=== PATIENT | female | born 1945 | race Caucasian/White ===

== ENCOUNTER 2023-11-05 10:41 | Emergency (ER) | payer MEDICARE, SELFPAY ==
[2023-11-05 10:43] VITALS: BP 157/85; PULSE 69; RESP 18; TEMP 36.7; BMI 34.7
--- NOTE | 2023-11-05 10:54 | EDS_ITS ---
HPI History of Present Illness Chief Complaint: Abn Labs Informant: patient Narrative Narrative: [facility] to abnormal labs. Given checking blood work last 4 days and her white count and platelet count continues to rise. She is currently on cefdinir for UTI. Urine culture returned with Klebsiella sensitive to this. Patient has no complaints. She denies abdominal or back pain. She has no urinary symptoms. She denies fever or chills. [facility] Medical History (Updated 11/05/23 @ 13:[address] Luli Wen MD) Anemia Chronic kidney disease, stage 3a Esophagitis GERD (gastroesophageal reflux disease) HTN (hypertension) Hyperlipidemia Orthostatic hypotension Type 2 diabetes mellitus Uses wheelchair Weakness Home Medications amlodipine 10 mg tablet 10 mg PO DAILY 11/05/23 [History Last Taken Unknown] atorvastatin 40 mg tablet 40 mg PO DAILY 11/05/23 [History Last Taken Unknown] cefdinir 300 mg capsule 300 mg PO BID 11/05/23 [History Last Taken Unknown] clindamycin HCl 150 mg capsule 300 mg (2 x 150 mg) PO 4X/DAY #80 CAPSULES 11/05/23 [Rx Last Taken Unknown] hydralazine 25 mg tablet 25 mg PO PRN PRN htn 11/05/23 [History Last Taken Unknown] insulin glargine 100 unit/mL (3 mL) subcutaneous pen 10 unit subcut QPM 11/05/23 [History Last Taken Unknown] insulin glargine 100 unit/mL (3 mL) subcutaneous pen (Lantus Solostar U-100 Insulin) 10 unit subcut QPM 11/05/23 [History Last Taken Unknown] insulin lispro 100 unit/mL subcutaneous pen (Humalog KwikPen (U-100) Insulin) 4 unit subcut DAILY 11/05/23 [History Last Taken Unknown] lisinopril 40 mg tablet 40 mg PO DAILY 11/05/23 [History Last Taken Unknown] metformin 500 mg tablet 500 mg PO DAILY 11/05/23 [History Last Taken Unknown] pantoprazole 40 mg tablet,delayed release 40 mg PO DAILY 11/05/23 [History Last Taken Unknown] torsemide 10 mg tablet 10 mg PO DAILY 11/05/23 [History Last Taken Unknown] Allergy/AdvReac Type Severity Reaction Status Date / Time latex Allergy Severe Hives Verified 11/05/23 10:43 Social History Smoking Status: Never smoker ROS ROS ED Constitutional Constitutional ED: Denies chills or fever(s) Eyes Eyes: Denies discharge from eye(s) ENT ENT ED: Denies discharge from eye(s), rhinorrhea or sore throat Cardiovascular Cardiovascular: Denies chest pain or palpitations Respiratory/Chest Respiratory/Chest: Denies cough or dyspnea Gastrointestinal Gastrointestinal: Denies abdominal pain, diarrhea, nausea or vomiting Genitourinary Genitourinary ED: Denies dysuria Musculoskeletal Musculoskeletal: Denies back pain or extremity pain Integumentary Denies Abrasions or rash Neurologic Neurologic: Denies headache(s) or weakness Psychiatric Psychiatric: Denies anxiety or depression Allergic/Immunologic Allergic/Immunologic ED: Denies lip swelling or urticaria EXAM Physical Exam Const Vital Signs: 11/05/23 10:43 11/05/23 10:47 11/05/23 11:18 Temperature 98.1 F Temperature Source Oral Pulse Rate 69 Respiratory Rate 18 Respiratory Pattern Normal Blood Pressure 157/85 H Blood Pressure Mean 109 Pulse Ox 95 Oxygen Delivery Method Room Air Positive well nourished and well developed General Appearance ED: well developed HEENT Reports moist mucous membranes Eyes EOMs intact bilaterally Chest Wall inspection of chest normal and palpation of chest normal Resp normal respiratory effort and clear to auscultation bilaterally Cardio regular rate and regular rhythm GI non-tender Auscultation: normoactive bowel sounds Palpation: soft Extremity normal to inspection Neuro oriented x3 and no sensory deficits noted Psych mental status grossly normal Skin no rashes or lesions noted MDM MDM MDM Narrative Medical decision making narrative: Patient's recent lab work reviewed. White count is elevated to 22,000 as of yesterday. Platelet count is 900,000. Creatinine is 1.5, which appears consistent with the 4 days of labs that I have available for review. Blood cultures did not show any growth and urine culture revealed evidence of Klebsiella. Given her continuing elevated white count sepsis workup will be initiated. History & Record Review Discussion w/independent historian: EMS personnel, Patient and Family Additional record(s) reviewed:: Prior inpatient record and Prior labs Lab Data Attestation: I reviewed the patient's lab results. Labs: Laboratory Results - last 24 hr 11/05/23 11/05/23 11:10 11:45 WBC 21.0 H RBC 4.00 L Hgb 11.8 L Hct 36.2 L MCV 90.5 MCH 29.5 MCHC 32.6 RDW Std Deviation 46.2 H RDW Coeff of [place] 14.0 Plt Count 896 H* MPV 10.6 Immature Gran % (Auto) 0.600 Neut % (Auto) 80.2 H Lymph % (Auto) 11.9 L [place] % (Auto) 6.2 Eos % (Auto) 0.8 Baso % (Auto) 0.3 Absolute Neuts (auto) 16.9 H Absolute Lymphs (auto) 2.51 Nucleated RBC % 0 Differential Comment SCANNED Diff Path Review May foll Platelet Estimate MKD INC PT 13.9 INR 1.1 APTT 26.8 Sodium 134 L Potassium 4.2 Chloride 99 Carbon Dioxide 30.0 Anion Gap 5 BUN 40 H Creatinine 1.67 H Estim Creat Clear Calc 21.63 Est GFR (MDRD) Af Amer 38 L Est GFR (MDRD) Non-Af 32 L BUN/Creatinine Ratio 24.0 H Glucose 245 H Lactic Acid 1.5 Calcium 9.4 Total Bilirubin 0.80 AST 17 ALT 22 Alkaline Phosphatase 136 H Total Protein 7.9 Albumin 3.3 Globulin 4.6 H Albumin/Globulin Ratio 0.7 L Urine Color Yellow Urine Clarity Sl. Cloudy Urine pH 5.0 Ur Specific [place] 1.010 Urine Protein 15 H Urine Glucose (UA) Normal Urine Ketones Negative Urine Occult Blood 10 H Urine Nitrite Negative Urine Bilirubin Negative Urine Urobilinogen Normal Ur Leukocyte Esterase 500 H Urine RBC 0 SEEN Urine WBC 10-25 SEEN Ur Squamous Epith Cells 0 SEEN Urine Bacteria 1+ Urine Mucus 0 SEEN Radiography Chest X-Ray - ED: 1 View, Read by ED Physician, Chronic Changes and No Infiltrates EKG Initial EKG: Attestation: I personally reviewed and interpreted this EKG as follows: Interpretation: Sinus Rhythm (Sinus at 70 with no acute ischemia.) Treatment and Re-Evaluation :: CBC was a white count 21,000 with a hemoglobin 11.8. 80% neutrophils noted. Platelet count is 896,000. Chemistry studies reveal BUN of 14 creatinine 1.67, near her baseline. Glucose is 245. LFTs unremarkable. Lactic acid is normal. Urinalysis shows continued infection with 1+ bacteria and 10-25 white cells. Portable chest x-ray reveals chronic changes with no evidence of focal infiltrate per my interpretation. EKG is sinus rhythm with no acute ischemia. I spoke with staff at the [facility] as well as Dr. Alexander, on-call for hematology. He states that the elevated platelet count is reactive with her infection and will likely resolve as her infection is treated. He did asked that I check with the lab to ensure they did not see any abnormal cells. I spoke with lab and they agree there were no abnormal cells noted. I then spoke with her doctor, Dr. Malave. He is comfortable caring for her at the [facility] given she has no signs of sepsis at this time. When I went back to update the patient family is now at bedside. They do raise concern that she has infection of her teeth with swollen gums and her teeth are loose. They wonder if this may be contributing to her infection. The cefdinir that she is currently on is to cover her Klebsiella but would not cover her oral dentition well. I will write her a second prescription for clindamycin to help cover her dental infection as well. Return instructions provided. Discharge Plan Triage Chief Complaint: Abn Labs ED Provider: Luli Wen Dx/Rx/DC Orders Clinical Impression: UTI (urinary tract infection), Leukocytosis, Thrombocytosis, Dental infection Instructions: ED Dental Abscess, ED Cystitis Female Adult Prescriptions: New clindamycin HCl 150 mg capsule 300 mg PO 4X/DAY Qty: 80 0RF No Action atorvastatin 40 mg tablet 40 mg PO DAILY insulin glargine 100 unit/mL (3 mL) insulin pen 10 unit subcut QPM insulin glargine [Lantus Solostar U-100 Insulin] 100 unit/mL (3 mL) insulin pen 10 unit subcut QPM lisinopril 40 mg tablet 40 mg PO DAILY metformin 500 mg tablet 500 mg PO DAILY pantoprazole 40 mg tablet,delayed release (DR/EC) 40 mg PO DAILY torsemide 10 mg tablet 10 mg PO DAILY amlodipine 10 mg tablet 10 mg PO DAILY cefdinir 300 mg capsule 300 mg PO BID insulin lispro [Humalog KwikPen Insulin] 100 unit/mL insulin pen 4 unit subcut DAILY hydralazine 25 mg tablet 25 mg PO PRN PRN (Reason: htn) Rx Instructions: give for SBP > 150 Primary Care Provider: Robert Malave Referrals: Robert Malave MD [[facility]] - 3-5 Days Activity Restrictions/Additional Instructions: After speaking with Dr. Malave, we discussed the potential of a dental infection in addition to your UTI. The antibiotics that we will cover your UTI do not provide good coverage for dental infection. I have written a secondary prescription for clindamycin, an antibiotic that will cover your dental infection. Please discuss this with Dr. Malave. Disposition Disposition: Retirement Facility Discharge Location: [facility]
--- NOTE | 2023-11-05 11:11 | ED.RN ---
NO OLD EKG
[2023-11-05 11:18] VITALS: O2SAT 95
--- NOTE | 2023-11-05 11:30 | RAD_ITS ---
STUDY: X-RAY CHEST REASON FOR EXAM: Female, 77 years old. Leukocytosis TECHNIQUE: Frontal view of the chest COMPARISON: None. FINDINGS: The lungs are clear. There are no pleural effusions. There is no pneumothorax. The heart is normal in size. The visualized osseous structures are within normal limits. RAD/Chest 1 View (Portable) IMPRESSION: No acute thoracic pathology. Electronically Signed: Ravi Lynch MD at 11:47 EST ,
[2023-11-05 11:34] LABS: Absolute Lymphocyte Count 2.51 X10^3/uL (0.83-4.51); Absolute Neutrophil Count 16.9 X10^3/uL (2.0-7.7); Basophil# 0.07 X10^3/uL; Basophil% 0.3 % (0-1); Eosinophil# 0.16 X10^3/uL; Eosinophils% 0.8 % (0-5); Hematocrit 36.2 % (37-47); Hemoglobin 11.8 g/dL (12.0-15.0); Lymphocyte # 2.51 X10^3/ul (0.83-4.51); Lymphocyte % 11.9 % (19-41); Mean Corp Hgb Conc 32.6 g/dL (32-36); Mean Corpuscular Hgb 29.5 pg (27.0-32.0); Mean Corpuscular Volume 90.5 fL (81-99); Mean Platelet Vol. 10.6 fl (6.2-12.0); Monocyte# 1.31 X10^3/uL; Monocyte% 6.2 % (0-10); NRBC Flagged by Analyzer 0 % (0-5); Neutrophil # 16.85 X10^3/uL (2.7-7.7); Neutrophil % 80.2 % (47-70); POSITIVE COUNT YES; POSITIVE MORPHOLOGY YES; RBC Distribution Width SD 46.2 fl (35.1-43.9)
[2023-11-05] MEDS: 0.9% Normal Saline (1000mL) 1,000 ML 150 ML IV (11:35)
[2023-11-05 11:37] LABS: Platelet Count 896 K/mm3 (150-450)
[2023-11-05 11:38] LABS: Differential Indicated SCAN CRITERIA MET; International Normalized Ratio 1.1; Prothrombin Time (Protime)PT. 13.9 SECONDS (11.7-14.9)
[2023-11-05 11:39] LABS: Partial Thromboplast Time 26.8 Seconds (24.1-36.2)
[2023-11-05 11:48] LABS: Mucous, Urine 0 SEEN /hpf (<or=2+); Red Blood Cells-Urine 0 SEEN /hpf (0-5); Squamous Epithelial Cells - UA 0 SEEN /hpf (5-10)
[2023-11-05 11:54] LABS: ALB/GLOB Ratio 0.7 RATIO (0.9-2.4); AST(SGOT) 17 U/L (15-37); Alanine Aminotransfer ALT/SGPT 22 U/L (13-56); Albumin, Serum 3.3 g/dL (3.2-5.0); Alkaline Phosphatase 136 U/L (45-117); Anion Gap 5 (5-15); BUN 40 mg/dL (7-18); Calcium,Total 9.4 mg/dL (8.5-10.1); Chloride 99 mmol/L (98-107); Creatinine, Serum 1.67 mg/dL (0.55-1.02); EST Glomerular Filtration Rate 32 mL/min (>60); Est Glom Filt Rate - Afr Amer 38 mL/min (>60); Estimated Creatinine Clearance 21.63 ml/min; Globulin 4.6 g/dL (2.2-4.2); Glucose 245 mg/dL (74-106); Lactic Acid 1.5 mmol/L (0.4-1.9); Potassium 4.2 mmol/L (3.5-5.1); Protein, Total 7.9 g/dL (6.4-8.2); Sodium Level 134 mmol/L (136-145)
[2023-11-05 11:56] LABS: Differential Comment SCANNED
[2023-11-05 11:57] LABS: Platelet Estimate MKD INC (ADEQ)
[2023-11-05] MEDS: Ceftriaxone 1 GM/50 ML BAG IV (12:02)
[2023-11-05 12:04] LABS: Color, Urine Yellow (Yellow); Glucose, Dipstick Normal (Normal); Ketone-Dipstick Negative (Negative); Leukocyte Esterase-Dipstick 500 /ul (Negative); Nitrite-Dipstick Negative (Negative); Occult Blood-Urine 10 /ul (Negative); Protein-Dipstick 15 mg/dl (Negative); Urine Bilirubin Dipstick Negative (Negative); Urine Clarity Sl. Cloudy (Clear); Urine Urobilinogen Normal (Normal)
[2023-11-05 12:14] LABS: Bacteria 1+ /hpf (None Seen); White Blood Cells 10-25 SEEN /hpf (0-5)
[2023-11-05 13:16] VITALS: PULSE 69; RESP 16; O2SAT 96
--- NOTE | 2023-11-05 13:29 | ED.RN ---
MISHEL CALLED ETA 20 MIN ([phone])
[2023-11-05 13:41] VITALS: PULSE 79; RESP 13; O2SAT 97
[2023-11-08 13:58] LABS: Pathologist Review Reviewed
== END 2023-11-05 14:17 | disposition skilled nursing facility (03) ==
PROVIDERS: Emergency Provider Emergency Medicine; Visit Provider Emergency Medicine
DX: N39.0 Urinary tract infection, site not specified (principal); E11.638 Type 2 diabetes mellitus with other oral complications; Z79.4 Long term (current) use of insulin; K21.00 Gastro-esophageal reflux disease with esophagitis, without bleeding; D72.829 Elevated white blood cell count, unspecified; B96.1 Klebsiella pneumoniae [K. pneumoniae] as the cause of diseases classified elsewhere; D75.839 Thrombocytosis, unspecified; I10 Essential (primary) hypertension; E78.5 Hyperlipidemia, unspecified; Z79.899 Other long term (current) drug therapy; Z79.84 Long term (current) use of oral hypoglycemic drugs
CPT/HCPCS: 71045; 80053; 81001; 83605; 85025; 85610; 85730; 87040; 87086; 87088; 93005; 96365; 99284; J7030; A4216

== ENCOUNTER → 2023-11-05 | Outpatient (REF) | payer MEDICARE, SELFPAY ==
[2023-11-05 08:29] LABS: Absolute Lymphocyte Count 5.99 X10^3/uL (0.83-4.51); Absolute Neutrophil Count 13.2 X10^3/uL (2.0-7.7); Basophil# 0.11 X10^3/uL; Basophil% 0.5 % (0-1); Eosinophil# 0.68 X10^3/uL; Eosinophils% 3.1 % (0-5); Hematocrit 39.3 % (37-47); Hemoglobin 12.6 g/dL (12.0-15.0); Lymphocyte # 5.99 X10^3/ul (0.83-4.51); Mean Corp Hgb Conc 32.1 g/dL (32-36); Mean Corpuscular Hgb 29.6 pg (27.0-32.0); Mean Corpuscular Volume 92.3 fL (81-99); Mean Platelet Vol. 10.4 fl (6.2-12.0); Monocyte# 2.13 X10^3/uL; Monocyte% 9.6 % (0-10); NRBC Flagged by Analyzer 0 % (0-5); Neutrophil # 13.17 X10^3/uL (2.7-7.7); Neutrophil % 59.2 % (47-70); POSITIVE COUNT YES; POSITIVE DIFFERENTIAL YES; POSITIVE MORPHOLOGY YES; RBC Distribution Width CV 13.9 % (11.6-14.6); RBC Distribution Width SD 46.8 fl (35.1-43.9); Red Blood Count 4.26 M/mm3 (4.2-5.4); White Blood Count 22.2 K/mm3 (4.4-11.0)
[2023-11-05 08:35] LABS: Differential Indicated SCAN CRITERIA MET; Platelet Count 916 K/mm3 (150-450)
[2023-11-05 08:44] LABS: Anion Gap 7 (5-15); BUN 43 mg/dL (7-18); BUN/Creat Ratio 28.5 RATIO (10-20); Calcium,Total 10.5 mg/dL (8.5-10.1); Chloride 99 mmol/L (98-107); Creatinine, Serum 1.51 mg/dL (0.55-1.02); EST Glomerular Filtration Rate 36 mL/min (>60); Est Glom Filt Rate - Afr Amer 43 mL/min (>60); Glucose 172 mg/dL (74-106); Potassium 3.9 mmol/L (3.5-5.1); Sodium Level 134 mmol/L (136-145)
[2023-11-05 09:24] LABS: Differential Comment SCANNED; Platelet Estimate MKD INC (ADEQ)
[2023-11-08 13:57] LABS: Pathologist Review Reviewed
== END ==
LOC: OLS.ACH 07:43
PROVIDERS: PCP Family Medicine; Visit Provider Family Medicine
DX: D72.829 Elevated white blood cell count, unspecified (principal); E11.65 Type 2 diabetes mellitus with hyperglycemia; D64.9 Anemia, unspecified
CPT/HCPCS: 36415; 80048; 85025

== ENCOUNTER 2023-11-16 15:38 | Emergency (ER) | payer MEDICARE, SELFPAY ==
[2023-11-16 15:39] VITALS: BP 160/72; PULSE 71; RESP 18; TEMP 36.6; O2SAT 93; BMI 33.9
--- NOTE | 2023-11-16 16:31 | EDS_ITS ---
HPI History of Present Illness Chief Complaint: Abn Labs [facility] Medical History (Updated 11/13/23 @ 00:04 by Background Hernán) Anemia Chronic kidney disease, stage 3a Esophagitis GERD (gastroesophageal reflux disease) HTN (hypertension) Hyperlipidemia Orthostatic hypotension Type 2 diabetes mellitus Uses wheelchair Weakness Home Medications amlodipine 10 mg tablet 10 mg PO DAILY 11/05/23 [History Last Taken Unknown] atorvastatin 40 mg tablet 40 mg PO DAILY 11/05/23 [History Last Taken Unknown] cefdinir 300 mg capsule 300 mg PO BID 11/05/23 [History Last Taken Unknown] clindamycin HCl 150 mg capsule 300 mg (2 x 150 mg) PO 4X/DAY #80 CAPSULES 11/05/23 [Rx Last Taken Unknown] hydralazine 25 mg tablet 25 mg PO PRN PRN htn 11/05/23 [History Last Taken Unknown] insulin glargine 100 unit/mL (3 mL) subcutaneous pen 10 unit subcut QPM 11/05/23 [History Last Taken Unknown] insulin glargine 100 unit/mL (3 mL) subcutaneous pen (Lantus Solostar U-100 Insulin) 10 unit subcut QPM 11/05/23 [History Last Taken Unknown] insulin lispro 100 unit/mL subcutaneous pen (Humalog KwikPen (U-100) Insulin) 4 unit subcut DAILY 11/05/23 [History Last Taken Unknown] lisinopril 40 mg tablet 40 mg PO DAILY 11/05/23 [History Last Taken Unknown] metformin 500 mg tablet 500 mg PO DAILY 11/05/23 [History Last Taken Unknown] pantoprazole 40 mg tablet,delayed release 40 mg PO DAILY 11/05/23 [History Last Taken Unknown] torsemide 10 mg tablet 10 mg PO DAILY 11/05/23 [History Last Taken Unknown] Allergy/AdvReac Type Severity Reaction Status Date / Time latex Allergy Severe Hives Verified 11/05/23 10:43 Social History Smoking Status: Never smoker EXAM Physical Exam Const Vital Signs: 11/16/23 15:39 11/16/23 15:43 11/16/23 15:39 Temperature 97.8 F Temperature Source Temporal Pulse Rate 71 Respiratory Rate 18 Respiratory Effort Normal Respiratory Pattern Normal Blood Pressure 160/72 H Blood Pressure Mean 101 Pulse Ox 93 Oxygen Delivery Method Room Air 11/16/23 17:39 11/16/23 19:00 11/16/23 20:30 Temperature Temperature Source Pulse Rate 69 71 Respiratory Rate 19 H 16 12 Respiratory Effort Respiratory Pattern Blood Pressure 165/96 H 180/79 H Blood Pressure Mean 119 112 Pulse Ox 94 96 Oxygen Delivery Method Room Air Room Air 11/16/23 21:45 Temperature Temperature Source Pulse Rate 70 Respiratory Rate 19 H Respiratory Effort Respiratory Pattern Blood Pressure 184/76 H Blood Pressure Mean 112 Pulse Ox 97 Oxygen Delivery Method [facility] MDM Narrative Medical decision making narrative: HISTORY OF PRESENT ILLNESS: 78-year-old female presents from alf with elevation white blood cell count and concern for elevated BUN/creatinine. Patient does not provide his tory. Majority history provided by daughter. Daughter states patient been more fatigued, lethargic , has been coughing for last several days. States he was tested for COVID yesterday was negative. Patient denies any symptoms at this time. She denies any headache, chest pain, recent falls, focal weakness, abdominal pain, excessive urination or change in urination. No bleeding diathesis. REVIEW OF SYSTEMS: Pertinent positives: Fatigue, cough, confusion Pertinent negatives: Chest pain, shortness of breath, difficulty urinating PHYSICAL EXAM: Nursing triage notes reviewed, Vital signs reviewed Constitutional: please see mdm HENT: MMM Eyes: Pupils equal round and reactive to light, Extraocular muscles intact Neck: No stridor, no JVD, full neck ROM Lungs: Clear to auscultation, No wheezing or rales. No increased work of breathing, no conversational dyspnea, no accessory muscle use, no nasal flaring. No respiratory distress noted Heart: Regular rate and rhythm, No murmurs, No rubs and No gallops, 2+ distal pulses (radial, femoral, posterior tibial) in all extremities Abdomen: Soft, there is no tenderness, rigidity, rebound or guarding, no obvious peritoneal signs, no palpable pulsatile abdominal masses, no auscultated abdominal bruit : No CVAT Extremities: No edema Neuro: No focal neurological deficits, cranial nerves II through XII intact, 5/5 strength in all extremities. Intact sensation to light touch in all extremities, 2+ reflexes bilateral patella tendons. Normal gait. No ataxia. Skin: No rash or lesions noted MEDICAL DECISION MAKING: Chief Complaint: Abnormal labs External records reviewed: CBC reviewed from today shows elevated white blood cell count of 15 however this is baseline from prior studies, baseline anemia, no thrombocytopenia. BMP shows baseline electrolytes, baseline CKD 4, Factors affecting care: hyperlipidemia, type 2 diabetes, hypertension Social determinants of health: alf resident History obtained from others: His daughter Consults: none [facility] Narrative: Was initially hemodynamically stable, afebrile, nontoxic-appearing. Differential diagnosis includes infectious encephalopathy, ICH, metabolic enceph alopathy I obtained a broad lab and imaging workup to further elucidate the etiology of his complaints. I have personally reviewed the patient's chest x-ray. Chest x-ray is unremarkable for pulmonary edema, pneumothorax, pneumonia or focal cardiopulmonary abnormality. CT scan abdomen pelvis shows no evidence of focus of infection CT scan head was negative for acute intracranial pathology CBC with baseline leukocytosis, baseline anemia, no thrombocytopenia BMP with chronic CKD High-sensitivity troponin is negative, no evidence of myocardial ischemia urinalysis shows no evidence of urinary inflammation suggestive of UTI RSV positive lipase elevated but not consistent with acute pancreatitis Initial lactate borderline elevated, repeat lactate downtrending. Discussed the patient's history, physical exam, labs and images suggest RSV as a potential etiology. She has stable leukocytosis, thrombocytosis, CKD. She is still making urine. While the patient was confused, alert but oriented to person and place but not time which is different than her baseline per daughter she is already at a nursing facility. Suspect her confusion, fatigue are secondary to RSV infection. Supportive care discussed. I discussed my suspicion, RSV infection and plan of care at home with the patient and family. The patient and/or family, caregivers express understanding. The patient and/or family, caregivers agrees with the plan. Shared decision making: I will have a discussion with the patient and or visitors regarding risk/benefits of further testing or admission. They will be made aware of of the risk/benefits inherent in this decision they will be given the opportunity to voice understanding. Total critical care time today provided was at least 0 minutes. This excludes separately billable procedures. Critical care time (if documented) is secondary to the patient having high probability of clinically significant/life threatening deterioration in the patient's condition which required my urgent intervention. Impression: 1. Leukocytosis 2. Anemia 3. CKD 4 4. Thrombocytosis 5. Elevated lipase 6. RSV Dispo: Charge back to alf Lab Data Attestation: I reviewed the patient's lab results. Labs: Laboratory Results - last 24 hr 11/16/23 11/16/23 11/16/23 17:22 19:00 20:35 WBC 16.9 H RBC 3.64 L Hgb 10.8 L Hct 33.5 L MCV 92.0 MCH 29.7 MCHC 32.2 RDW Std Deviation 48.0 H RDW Coeff of [place] 14.4 Plt Count 694 H MPV 10.9 Immature Gran % (Auto) 0.400 Neut % (Auto) 66.0 Lymph % (Auto) 17.2 L [place] % (Auto) 10.5 H Eos % (Auto) 5.5 H Baso % (Auto) 0.4 Absolute Neuts (auto) 11.2 H Absolute Lymphs (auto) 2.92 Nucleated RBC % 0 Differential Comment SCANNED Diff Path Review March Sodium 138 Potassium 4.0 Chloride 106 Carbon Dioxide 27.0 Anion Gap 5 BUN 39 H Creatinine 2.08 H Estim Creat Clear Calc 21.90 Est GFR (MDRD) Af Amer 30 L Est GFR (MDRD) Non-Af 25 L BUN/Creatinine Ratio 18.8 Glucose 226 H Lactic Acid 2.0 1.4 Calcium 9.1 Total Bilirubin 0.50 AST 17 ALT 18 Alkaline Phosphatase 115 Troponin I High Sens 20 Total Protein 6.9 Albumin 3.0 L Globulin 3.9 Albumin/Globulin Ratio 0.8 L Lipase 106 H Urine Color Yellow Urine Clarity Clear Urine pH 5.0 Ur Specific [place] 1.015 Urine Protein 30 H Urine Glucose (UA) 100 H Urine Ketones Negative Urine Occult Blood Negative Urine Nitrite Negative Urine Bilirubin Negative Urine Urobilinogen Normal Ur Leukocyte Esterase Negative Urine RBC 0 SEEN Urine WBC 0 SEEN Ur Squamous Epith Cells 0 SEEN Urine Bacteria 1+ Urine Mucus 0 SEEN Radiography Diagnostic Testing: Clinical Impression(s) from Imaging Studies Brain CT 11/16/23 17:05 IMPRESSION: Chronic changes as described with no acute intracranial hemorrhage or space-occupying lesion. Electronically Signed: Brittany Carbone MD at 18:22 EST , Abdomen/Pelvis CT 11/16/23 17:08 IMPRESSION: Constipation. No focal inflammatory process throughout the gastrointestinal tract. No bowel obstruction. Small hiatal hernia. Status post cholecystectomy with question prior splenectomy. Otherwise unremarkable abdominal viscera. Electronically Signed: Brittany Carbone MD at 18:24 EST , Chest X-Ray 11/16/23 17:32 IMPRESSION: No acute cardiopulmonary disease. Electronically Signed: Brittany Carbone MD at 18:21 EST , Discharge Plan Triage Chief Complaint: Abn Labs ED Provider: Juan Luis Rea Dx/Rx/DC Orders Instructions: White Blood Cell Count, ED Chronic Kidney Disease (CKD) Prescriptions: No Action atorvastatin 40 mg tablet 40 mg PO DAILY insulin glargine 100 unit/mL (3 mL) insulin pen 10 unit subcut QPM insulin glargine [Lantus Solostar U-100 Insulin] 100 unit/mL (3 mL) insulin pen 10 unit subcut QPM lisinopril 40 mg tablet 40 mg PO DAILY metformin 500 mg tablet 500 mg PO DAILY pantoprazole 40 mg tablet,delayed release (DR/EC) 40 mg PO DAILY torsemide 10 mg tablet 10 mg PO DAILY amlodipine 10 mg tablet 10 mg PO DAILY cefdinir 300 mg capsule 300 mg PO BID insulin lispro [Humalog KwikPen Insulin] 100 unit/mL insulin pen 4 unit subcut DAILY hydralazine 25 mg tablet 25 mg PO PRN PRN (Reason: htn) Rx Instructions: give for SBP > 150 clindamycin HCl 150 mg capsule 300 mg PO 4X/DAY Qty: 80 0RF Primary Care Provider: Robert Malave Referrals: Robert Malave DO [Primary Care Provider] - Activity Restrictions/Additional Instructions: Thank you for trusting us with your care today! You have been diagnosed with RSV, elevated white blood cell count, elevated platelet count, and chronic kidney disease stage IV. Please take Tylenol (2 pills, 650 mg), ibuprofen (2 pills, 400 mg) every 6 hours as needed for pain and fever control. Please return to the emergency department if your symptoms change or worsen. You will need laboratory reevaluation approximate 7 days to determine any worsening kidney dysfunction, and any changes to your blood count. Please follow with your primary care physician for further outpatient evaluation and management. Disposition Disposition: Home, Self Care
--- NOTE | 2023-11-16 17:05 | EKG12_ITS ---
Test Reason : ABN LABS Blood Pressure : / mmHG Vent. Rate : 069 BPM Atrial Rate : 069 BPM P-R Int : 130 ms QRS Dur : 110 ms QT Int : 402 ms P-R-T Axes : 032 -41 055 degrees QTc Int : 430 ms Normal sinus rhythm Left axis deviation Minimal voltage criteria for LVH, may be normal variant ( Paxton product ) Abnormal ECG Confirmed by ANANTH BURGESS, REGINA ([id number]), editor at large OSCAR RICCI ([id number]) on 11/18/2023 7:09:34 AM Referred By: Confirmed By:REGINA WADSWORTH MD
--- NOTE | 2023-11-16 17:05 | CT_ITS ---
STUDY: CT BRAIN WITHOUT CONTRAST REASON FOR EXAM: Female, 78 years old. altered mental status RADIATION DOSAGE (If Supplied By Facility): CTDIvol = ( 44.99 ) mGy, DLP = ( 796.11 ) mGycm TECHNIQUE: Transaxial CT imaging of the brain was performed without administration of intravenous contrast material. Individualized dose optimization techniques were used for this CT. COMPARISON: No relevant priors. FINDINGS: Normal soft tissue structures. Normal calvarium. There is mild cerebral atrophy with widening of the extra-axial spaces and ventricular dilatation. There are areas of decreased attenuation within the white matter tracts of the supratentorial brain, consistent with microvascular disease changes. Normal basal ganglia and thalami. Normal brainstem. Normal cerebellum. There is no intracranial hemorrhage. There are no findings of an acute ischemic infarction. Mild mucosal thickening of the left maxillary sinus, sphenoid, ethmoids and frontal sinuses consistent with sequela of sinusitis. CT/Brain/Head without Contrast IMPRESSION: Chronic changes as described with no acute intracranial hemorrhage or space-occupying lesion. Electronically Signed: Brittany Carbone MD at 18:22 EST ,
--- NOTE | 2023-11-16 17:08 | CT_ITS ---
STUDY: CT ABDOMEN AND PELVIS WITHOUT CONTRAST REASON FOR EXAM: Female, 78 years old. lower abdominal TTP RADIATION DOSAGE (If Supplied By Facility): CTDIvol = ( 23.60 ) mGy, DLP = ( 1149.58 ) mGycm TECHNIQUE: Transaxial images were obtained from the dome of the diaphragm to the symphysis pubis without oral contrast, and without intravenous contrast. Sagittal and coronal images were reconstructed. Individualized dose optimization techniques were used for this CT. COMPARISON: None. FINDINGS: Mild bilateral lower lobe atelectasis. Normal cardiac size. Normal liver. There are surgical clips in the gallbladder fossa consistent with a prior cholecystectomy. Nonvisualized spleen suggestive of prior splenectomy. Normal pancreas. Normal bilateral adrenal glands. Normal right kidney. Normal left kidney. Minimal hiatal hernia, otherwise unremarkable stomach. Normal small intestine. Increased fecal debris within the colon consistent with constipation. There is non-visualization of the appendix. There is diffuse atherosclerotic calcification of the abdominal aorta, without a demonstrated aneurysm. Normal inferior vena cava. Normal retroperitoneum. Normal urinary bladder. [Anteverted uterus. Minimal fat-containing umbilical hernia. There are diffuse degenerative changes of the visualized lumbar spine. CT/Abdomen/Pelvis without Cont IMPRESSION: Constipation. No focal inflammatory process throughout the gastrointestinal tract. No bowel obstruction. Small hiatal hernia. Status post cholecystectomy with question prior splenectomy. Otherwise unremarkable abdominal viscera. Electronically Signed: Brittany Carbone MD at 18:24 EST ,
--- NOTE | 2023-11-16 17:32 | RAD_ITS ---
STUDY: X-RAY CHEST REASON FOR EXAM: Female, 78 years old. cough, AMS TECHNIQUE: Single AP portable view of the chest. COMPARISON: 11/05/2023. FINDINGS: The lungs are clear and expanded. There is no demonstrated pleural abnormality. Normal size heart. Normal mediastinum and grabiel. Normal visualized pulmonary arteries. Normal visualized aortic arch and descending thoracic aorta. There are diffuse degenerative changes of the visualized thoracic spine. Normal visualized ribs, clavicles, and shoulders. There is no demonstrated abnormality of the visualized soft tissue structures of the upper abdomen. RAD/Chest 1 View (Portable) IMPRESSION: No acute cardiopulmonary disease. Electronically Signed: Brittany Carbone MD at 18:21 EST ,
[2023-11-16 17:39] VITALS: BP 165/96; PULSE 69; RESP 19; O2SAT 94
[2023-11-16 17:40] LABS: Absolute Lymphocyte Count 2.92 X10^3/uL (0.83-4.51); Absolute Neutrophil Count 11.2 X10^3/uL (2.0-7.7); Basophil# 0.07 X10^3/uL; Basophil% 0.4 % (0-1); Eosinophil# 0.93 X10^3/uL; Eosinophils% 5.5 % (0-5); Hematocrit 33.5 % (37-47); Hemoglobin 10.8 g/dL (12.0-15.0); Lymphocyte # 2.92 X10^3/ul (0.83-4.51); Lymphocyte % 17.2 % (19-41); Mean Corp Hgb Conc 32.2 g/dL (32-36); Mean Corpuscular Hgb 29.7 pg (27.0-32.0); Mean Platelet Vol. 10.9 fl (6.2-12.0); Monocyte# 1.78 X10^3/uL; Monocyte% 10.5 % (0-10); NRBC Flagged by Analyzer 0 % (0-5); Neutrophil # 11.17 X10^3/uL (2.7-7.7); POSITIVE DIFFERENTIAL YES; POSITIVE MORPHOLOGY YES; Platelet Count 694 K/mm3 (150-450); RBC Distribution Width CV 14.4 % (11.6-14.6); Red Blood Count 3.64 M/mm3 (4.2-5.4); White Blood Count 16.9 K/mm3 (4.4-11.0)
[2023-11-16 17:41] LABS: Differential Indicated SCAN CRITERIA MET
[2023-11-16 18:01] LABS: ALB/GLOB Ratio 0.8 RATIO (0.9-2.4); AST(SGOT) 17 U/L (15-37); Alanine Aminotransfer ALT/SGPT 18 U/L (13-56); Alkaline Phosphatase 115 U/L (45-117); Anion Gap 5 (5-15); BUN 39 mg/dL (7-18); BUN/Creat Ratio 18.8 RATIO (10-20); Calcium,Total 9.1 mg/dL (8.5-10.1); Chloride 106 mmol/L (98-107); Creatinine, Serum 2.08 mg/dL (0.55-1.02); EST Glomerular Filtration Rate 25 mL/min (>60); Est Glom Filt Rate - Afr Amer 30 mL/min (>60); Globulin 3.9 g/dL (2.2-4.2); Glucose 226 mg/dL (74-106); Lipase 106 U/L (13-75); Protein, Total 6.9 g/dL (6.4-8.2); Sodium Level 138 mmol/L (136-145); Troponin-I HS 20 pg/mL (3.0-54.0)
[2023-11-16 18:14] LABS: Differential Comment SCANNED
[2023-11-16 19:00] VITALS: RESP 16
[2023-11-16 19:09] LABS: Mucous, Urine 0 SEEN /hpf (<or=2+); Red Blood Cells-Urine 0 SEEN /hpf (0-5); Squamous Epithelial Cells - UA 0 SEEN /hpf (5-10); White Blood Cells 0 SEEN /hpf (0-5)
[2023-11-16] MEDS: 0.9% Normal Saline (1000mL) 1,000 ML 999 ML IV (19:19)
[2023-11-16 19:44] LABS: Color, Urine Yellow (Yellow); Glucose, Dipstick 100 mg/dl (Normal); Ketone-Dipstick Negative (Negative); Leukocyte Esterase-Dipstick Negative /ul (Negative); Nitrite-Dipstick Negative (Negative); Occult Blood-Urine Negative /ul (Negative); Protein-Dipstick 30 mg/dl (Negative); Specific Gravity, Urine 1.015 (1.002-1.030); Urine Bilirubin Dipstick Negative (Negative); Urine Clarity Clear (Clear); Urine Urobilinogen Normal (Normal)
[2023-11-16 19:55] LABS: Bacteria 1+ /hpf (None Seen)
[2023-11-16 20:30] VITALS: BP 180/79; PULSE 71; RESP 12; O2SAT 96
[2023-11-16 21:30] LABS: Reflex Lactate? Y
[2023-11-16 21:45] VITALS: BP 184/76; PULSE 70; RESP 19; O2SAT 97
[2023-11-16 21:53] LABS: Lactic Acid 1.4 mmol/L (0.4-1.9)
--- NOTE | 2023-11-16 22:00 | ED.RN ---
Physician's ambulance called for transport back to [facility]. ETA 3-4 hours. This RN asked for them to outsource.
[2023-11-16 23:37] VITALS: BP 184/65; PULSE 71; RESP 15; O2SAT 95
--- NOTE | 2023-11-17 02:05 | ED.RN ---
Physicians calls with an updated ETA of an additional 2-3 hours. They were asked to try to out source again.
--- NOTE | 2023-11-17 04:19 | ED.RN ---
Physicians calls again with another updated ETA. New ETA is [id number]
[2023-11-17 05:00] VITALS: BP 188/79; PULSE 67; RESP 18; O2SAT 94
[2023-11-17 06:23] VITALS: BP 182/63; PULSE 60; RESP 19; O2SAT 95
[2023-11-17 13:42] LABS: Pathologist Review Reviewed
== END 2023-11-17 07:00 | disposition home or self-care (01) ==
PROVIDERS: Emergency Provider Emergency Medicine; Visit Provider Emergency Medicine
DX: D72.829 Elevated white blood cell count, unspecified (principal); E11.22 Type 2 diabetes mellitus with diabetic chronic kidney disease; N18.4 Chronic kidney disease, stage 4 (severe); Z79.4 Long term (current) use of insulin; B97.4 Respiratory syncytial virus as the cause of diseases classified elsewhere; I12.9 Hypertensive chronic kidney disease with stage 1 through stage 4 chronic kidney disease, or unspecified chronic kidney disease; K21.00 Gastro-esophageal reflux disease with esophagitis, without bleeding; D64.9 Anemia, unspecified; E78.5 Hyperlipidemia, unspecified; Z79.899 Other long term (current) drug therapy; Z79.84 Long term (current) use of oral hypoglycemic drugs; D75.839 Thrombocytosis, unspecified; R74.8 Abnormal levels of other serum enzymes; R05.9 Cough, unspecified
CPT/HCPCS: 36592; 70450; 71045; 74176; 80053; 81001; 83605; 83690; 84484; 85025; 87631; 93005; 96360; 99283; J7030; A4216